=== PATIENT | female | born 1955 | race Caucasian/White ===

== ENCOUNTER 2024-07-20 14:54 | Outpatient (CLI) | payer MEDICARE, OTHER | END 2024-07-20 14:55 | disposition home or self-care (01) | LOC: CSHMRI 14:54 | PROVIDERS: ATTEND Specialist | DX: M54.16 Radiculopathy, lumbar region (principal); M48.061 Spinal stenosis, lumbar region without neurogenic claudication | CPT/HCPCS: 72148 ==